=== PATIENT | male | born 1950 | race Caucasian/White ===

== ENCOUNTER 2016-05-23 08:38 | Emergency (ER) | payer OTHER | END 2016-05-23 10:59 | disposition home or self-care (01) | DX: B34.9 Viral infection, unspecified (principal); R55 Syncope and collapse; M54.9 Dorsalgia, unspecified; G89.29 Other chronic pain ==

== ENCOUNTER 2017-02-10 17:39 | Emergency (ER) | payer OTHER ==
[2017-02-10] MEDS ORDERED: PROPARACAINE 0.5% OPHTH DROPS 15 ML ONE (17:45)
[2017-02-10] MEDS ORDERED: ERYTHROMYCIN OPHTH OINT 1 GM TUBE RIGHTEYE STA (17:50)
--- NOTE | 2017-02-10 17:52 | ED Physician Documentation ---
PD HPI OPHTHO - Stated complaint Stated Complaint: FB RT EYE - Chief complaint Chief Complaint: Heent - History obtained from History obtained from: Patient - History of Present Illness Timing - onset: Other (He was working in the house today, he feels like there is something in the right eye. His vision is normal, he does not wear contacts. Tetanus is up-to-date.) Review of Systems Constitutional: denies: Fever, Chills Nose: denies: Rhinorrhea / runny nose, Congestion Throat: denies: Sore throat PD PAST MEDICAL HISTORY - Past Medical History Past Medical History: No Musculoskeletal: Chronic back pain - Past Surgical History Past Surgical History: Yes General: Hiatal hernia repair - Present Medications Home Medications: Ambulatory Orders Medication Instructions Recorded Confirmed Gabapentin [Neurontin] 0 mg PO TID 10/22/12 02/10/17 Morphine Sulfate [Ms Contin] 30 mg PO DAILY 05/23/16 02/10/17 Erythromycin Base [Erythromycin] 1 applic OP 5XD 7 Days oint...g. 02/10/17 - Allergies Allergies/Adverse Reactions: Allergies Allergy/AdvReac Type Severity Reaction Status Date / Time peanut Allergy vomiting Verified 02/10/17 17:45 - Social History Does the pt smoke?: No Smoking Status: Never smoker Does the pt drink ETOH?: Yes Does the pt have substance abuse?: No - Immunizations Immunizations are current?: Yes - POLST Patient has POLST: No PD ED PE NORMAL - Vitals Vital signs reviewed: Yes - General General: Alert and oriented X 3, No acute distress, Well developed/nourished - HEENT HEENT: PERRL, Other (There is a tiny metallic foreign body over the cornea, inferolateral.) - Neck Neck: Supple, no meningeal sign, No bony TTP - Neuro Neuro: Alert and oriented X 3, Normal speech - Psych Psych: Normal mood, Normal affect Results - Vitals Vitals: Vital Signs - 24 hr 02/10/17 17:44 Temperature 36.3 C L Heart Rate 70 Respiratory 18 Rate Blood Pressure 156/83 H O2 Saturation 97 Oxygen O2 Source Room air Procedures - FB removal FB location: Other (Cornea) FB removal preparation: Local anesthesia-specify (Topical proparacaine) Removal method: Other (I could not remove it with a cotton swab, but it easily came out with a tuberculin needle. No residual rust ring.) Departure - Departure Disposition: 01 Home, Self Care Clinical Impression: Corneal foreign body Qualifiers: Encounter type: initial encounter Laterality: right Qualified Code(s): T15.01XA - Foreign body in cornea, right eye, initial encounter Condition: Good Record reviewed to determine appropriate education?: Yes Instructions: ED Foreign Body Cornea Follow-Up: Aroldo Lozada MD [Provider Admit Priv/Credential] - Within 3 Days Prescriptions: Erythromycin Base [Erythromycin] 1 applic OP 5XD 7 Days oint...g. Comments: Your blood pressure was elevated today on check into the emergency department. This does not mean that you have hypertension, it is a common phenomenon to come to the emergency department and have elevated blood pressure. I recommend that she see your primary care physician within the week to have it rechecked when you are feeling better.
[2017-02-10] MEDS ORDERED: ERYTHROMYCIN OPHTH OINT 1 GM TUBE ONE (18:04)
[2017-02-10 18:05] VITALS: BP 142/81
== END 2017-02-10 18:03 | disposition home or self-care (01) ==
LOC: ED 17:39
DX: T15.01XA Foreign body in cornea, right eye, initial encounter (principal); W22.8XXA Striking against or struck by other objects, initial encounter; Y93.89 Activity, other specified; Y92.009 Unspecified place in unspecified non-institutional (private) residence as the place of occurrence of the external cause; R03.0 Elevated blood-pressure reading, without diagnosis of hypertension
CPT/HCPCS: 65220; 99282; 99283; J3490

== ENCOUNTER 2017-02-13 11:01 | Day surgery (SDC) | payer OTHER ==
[2017-02-13] MEDS ORDERED: LACTATED RINGERS 1,000 ML IV ONE (11:11)
[2017-02-13] MEDS ORDERED: MIDAZOLAM 2 MG/2 ML VIAL IVP ONE (12:05)
[2017-02-13] MEDS ORDERED: fentaNYL 100 MCG/2 ML VIAL IVP ONE (12:05)
[2017-02-13] MEDS ORDERED: PROPOFOL 200 MG/20 ML VIAL IVP ONE (13:00)
[2017-02-13] MEDS ORDERED: LIDOCAINE-MPF 2% 5 ML VIAL IM ONE (13:00)
[2017-02-13 13:55] VITALS: BP 118/85
== END 2017-02-13 11:02 | disposition home or self-care (01) ==
LOC: SDS 11:01
PROVIDERS: ATTEND Surgery
PROC: 0DJD8ZZ Inspection of Lower Intestinal Tract, Via Natural or Artificial Opening Endoscopic (ICD-10-PCS; principal; 2017-02-13 12:15)
DX: Z12.11 Encounter for screening for malignant neoplasm of colon (principal); K57.30 Diverticulosis of large intestine without perforation or abscess without bleeding
CPT/HCPCS: G0121; J7120

== ENCOUNTER 2017-03-12 12:25 | Outpatient (CLI) | payer OTHER ==
--- NOTE | 2017-03-12 15:36 | XRAY Report ---
THREE VIEW RIGHT INDEX FINGER: 03/12/2017 CLINICAL INDICATION: Crush injury. FINDINGS: AP, lateral, and oblique views of the right index finger demonstrate a minimally displaced fracture of the distal phalanx, best seen on the lateral view. Osteoarthritis of the distal interpha langeal joint is noted. No foreign body is seen in the soft tissues. There is no evidence of dislocat ion. IMPRESSION: MINIMALLY DISPLACED FRACTURE OF THE DISTAL PHALANX OF THE RIGHT INDEX FINGER. JOB #: [id number] EXT JOB #:[id number]
== END 2017-03-12 12:26 | disposition home or self-care (01) ==
LOC: DI 12:25
PROVIDERS: ATTEND Family Medicine
DX: S62.630A Displaced fracture of distal phalanx of right index finger, initial encounter for closed fracture (principal)
CPT/HCPCS: 73140

== ENCOUNTER 2018-09-24 23:27 | Emergency (ER) | payer OTHER ==
[2018-09-24 23:39] VITALS: BP 133/76
[2018-09-25] MEDS ORDERED: PROPARACAINE 0.5% OPHTH DROPS 15 ML RIGHTEYE STA (00:23)
[2018-09-25] MEDS ORDERED: ERYTHROMYCIN OPHTH OINT 1 GM TUBE RIGHTEYE STA (01:18)
--- NOTE | 2018-09-25 01:22 | ED Physician Documentation ---
PD HPI OPHTHO - Stated complaint Stated Complaint: R EYE PX - Chief complaint Chief Complaint: Heent - History obtained from History obtained from: Patient - History of Present Illness Timing - onset: Today Timing - duration: Hours Timing - details: Abrupt onset Location: Right Quality / character: Aching (irritation) Associated symptoms: Redness, Tearing. No: Swelling, Discharge, Matting, FB sensation, Photophobia, Double vision, Decreased vision, Loss of vision, Headache Contributing factors: FB, Other (while working on his car today, was wearing safety glasses. does not use glasses or contacts.) - Treatment prior to arrival Treatment prior to arrival: none Review of Systems Ten Systems: 10 systems reviewed and negative Constitutional: denies: Fever, Chills Eyes: reports: Irritation. denies: Loss of vision, Decreased vision, Photophobia, Discharge, Reviewed and negative Neurologic: denies: Headache PD PAST MEDICAL HISTORY - Past Medical History Past Medical History: Yes Cardiovascular: None Respiratory: None Neuro: None Endocrine/Autoimmune: None GI: None : None HEENT: None Psych: None Musculoskeletal: Osteoarthritis, Other Derm: None - Past Surgical History Past Surgical History: Yes General: Colonoscopy, Other /CUSTOMER SOLUTIONS TEAMMATE: Other - Present Medications Home Medications: Ambulatory Orders Medication Instructions Recorded Confirmed Gabapentin [Neurontin] 0 mg PO TID 10/22/12 02/10/17 Morphine Sulfate [Ms Contin] 30 mg PO DAILY 05/23/16 02/10/17 Erythromycin Base [Erythromycin] 1 applic OP 5XD 7 Days oint...g. 02/10/17 Erythromycin Base [Erythromycin 1 gm OP Q4HR 7 Days #1 oint...g. 09/25/18 Ophthalmic Ointment] - Allergies Allergies/Adverse Reactions: Allergies Allergy/AdvReac Type Severity Reaction Status Date / Time peanut Allergy vomiting Verified 09/24/18 23:38 - Social History Does the pt smoke?: No Smoking Status: Former smoker Does the pt drink ETOH?: Yes Does the pt have substance abuse?: No - Immunizations Immunizations are current?: Yes - POLST Patient has POLST: No PD ED PE NORMAL - Vitals Vital signs reviewed: Yes - General General: Alert and oriented X 3 - HEENT HEENT: Other (Right eye slit lamp shows R corneal foreign body and rust ring. ) - Neck Neck: Supple, no meningeal sign - Cardiac Cardiac: RRR - Respiratory Respiratory: No respiratory distress - Male Male : Deferred - Rectal Rectal: Deferred (d) - Derm Derm: Normal color, Warm and dry, No rash - Neuro Neuro: Alert and oriented X 3 Eye Opening: Spontaneous Motor: Obeys Commands Verbal: Oriented GCS Score: 15 - Psych Psych: Normal mood, Normal affect Results - Vitals Vitals: Vital Signs - 24 hr 09/24/18 23:37 Temperature 36.5 C Heart Rate 65 Respiratory 17 Rate Blood Pressure 133/76 H O2 Saturation 98 Oxygen O2 Source Room air Procedures - FB removal FB location: Other (eye) FB removal preparation: Local anesthesia-specify (proparacaine drops) Removal method: Other (anna tool, rust ring remains however) FB removal aftercare: Partially removed (rust ring remains. pt to start erythromycin and f/u with ophthalmology) Departure - Departure Disposition: 01 Home, Self Care Clinical Impression: Eye foreign body Qualifiers: Encounter type: initial encounter Laterality: right Qualified Code(s): T15.91XA - Foreign body on external eye, part unspecified, right eye, initial encounter Corneal foreign body Qualifiers: Encounter type: initial encounter Laterality: right Qualified Code(s): T15.01XA - Foreign body in cornea, right eye, initial encounter Condition: Good Record reviewed to determine appropriate education?: Yes Prescriptions: Erythromycin Base [Erythromycin Ophthalmic Ointment] 1 gm OP Q4HR 7 Days #1 oint...g. Comments: You should apply the antibiotic ointment every 4 hours when awake to prevent a corneal infection of your right eye. Follow up with your eye doctor within the next 1-2 days for removal of the rust ring from the foreign body.
== END 2018-09-25 01:25 | disposition home or self-care (01) ==
LOC: ED 23:27
DX: T15.01XA Foreign body in cornea, right eye, initial encounter (principal); X58.XXXA Exposure to other specified factors, initial encounter; Y93.89 Activity, other specified; Z87.891 Personal history of nicotine dependence
CPT/HCPCS: 65222; 99283; J3490

== ENCOUNTER 2018-10-21 12:50 | Outpatient (CLI) | payer OTHER | END 2018-10-21 12:51 | disposition home or self-care (01) | LOC: SC 12:50 | PROVIDERS: ATTEND Internal Medicine Pulmonary Disease | DX: R06.83 Snoring (principal); R06.81 Apnea, not elsewhere classified; F17.210 Nicotine dependence, cigarettes, uncomplicated; E66.3 Overweight; Z68.26 Body mass index [BMI] 26.0-26.9, adult | CPT/HCPCS: 99203; 99212 ==

== ENCOUNTER 2018-11-17 20:31 | Outpatient (CLI) | payer OTHER | END 2018-11-17 20:32 | disposition home or self-care (01) | LOC: SC 20:31 | PROVIDERS: ATTEND Internal Medicine Pulmonary Disease | DX: G47.33 Obstructive sleep apnea (adult) (pediatric) (principal); G47.61 Periodic limb movement disorder | CPT/HCPCS: 95810 ==

== ENCOUNTER 2018-12-10 13:08 | Outpatient (CLI) | payer OTHER ==
--- NOTE | 2018-12-10 13:57 | CONSULTATION NOTE ---
Information from patient questionnaire entered by Xiomara Delgado. I have reviewed and concur with the information entered by Xiomara Delgado. This document represents the service I personally performed and the decisions made by me, Nicol Pearl MD, [facility]. - History of Present Illness HPI: Mr. Piper returned for follow up of the sleep study he had on 11/17/2018. The polysomnography showed that the patient had reduced sleep efficiency due to frequent awakenings after the sleep onset. The sleep architecture was abnormal for sleep fragmentation and lack of slow wave sleep (N3). Respiratory monitoring showed moderate obstructive sleep apnea-hypopnea (AHI = 16.1) associated with frequent arousals, oxyhemoglobin desaturation and mild hypoxia (yissel oxygen saturation of 87%). The respiratory events occurred almost exclusively during supine sleep (supine AHI = 33.3; non-supine = 0.73). Snore was loud in intensity. There was mild periodic leg movement of sleep not contributing to the sleep fragmentation. Cardiac rhythm was normal sinus rhythm without significant arrhythmia. No abnormal behavior (parasomnia) observed during the night. The patient was informed of these findings. I explained to him the pathophysiology behind obstructive sleep apnea. We then spent quite a bit of time discussing different treatment options. For mild obstructive sleep apnea, surgery and oral appliance are alternatives to nasal CPAP therapy but in moderate or severe cases, nasal CPAP is the most effective and reliable treatment. Weight loss in an obese individual is strongly recommended. After some discussion, he opted to go with the nasal CPAP therapy. I explained to him how CPAP machine works and what to expect when using the machine. He is encouraged to use CPAP every night especially in the first 2 to 3 nights in order to get used to it. He should call his CPAP supplier or me to discuss any mechanical problem that may occur. If he snores or feels like he is not getting enough air from the machine, he should notify me and I will increase the pressure. Initial Mosca Sleepiness Scale score: 2 Current Mosca Sleepiness Scale score: 3 - Allergies/Medications Allergies and home medications reviewed: Yes - Review of Systems Review of systems same as previous: Yes - Impression 1. Obstructive Sleep Apnea-Hypopnea Syndrome, moderate, associated with mild hypoxemia and sleep fragmentation. Most likely, this is the cause of the patients symptoms of unrefreshed sleep, and excessive daytime sleepiness. As mentioned above, the patient will be started on an autoCPAP set between 5 and 15 cmH2O. Depending on his response and compliance he may be brought back for an overnight CPAP titration study. - Plan 1. Prescription made for an autoCPAP, heated humidifier, and related supplies. 2. Avoid alcohol consumption near bedtime. 3. The patient is again cautioned about driving until his sleepiness completely resolves on the CPAP therapy. 4. Return in six weeks for follow up. I will assess his response and compliance at that time. This visit is time-based and I spent 15 minutes with the patient and more than 50% of the time was spent counseling the patient.
== END 2018-12-10 13:09 | disposition home or self-care (01) ==
LOC: SC 13:08
PROVIDERS: ATTEND Internal Medicine Pulmonary Disease
DX: G47.33 Obstructive sleep apnea (adult) (pediatric) (principal)
CPT/HCPCS: 99212; 99213

== ENCOUNTER 2020-02-05 04:38 | Emergency (ER) | payer OTHER ==
--- NOTE | 2020-02-05 05:05 | ED Physician Documentation ---
History of Present Illness - Stated complaint Stated Complaint: clavicle/hand pain - Chief complaint Chief Complaint: Trauma Ext - Additonal information Additional information: Patient comes emergency department complaining of right clavicle and left hand. After a fall off his deck steps yesterday. Patient states there are 3 steps going down off of his deck and he is not sure exactly what happened, but he ended up landing on the ground after somehow falling. Patient states he is not sure exactly in what position he landed, but after the word, he noticed pain in his right clavicle, along with some swelling and bruising. Patient states he also feels as though his left third MCP joint is painful and swollen, as well. Patient denies any history of injury previously. No fevers or chills. No other complaints at this time. Review of Systems Ten Systems: 10 systems reviewed and negative Constitutional: reports: Reviewed and negative Eyes: reports: Reviewed and negative Ears: reports: Reviewed and negative Nose: reports: Reviewed and negative Throat: reports: Reviewed and negative Cardiac: reports: Reviewed and negative Respiratory: reports: Reviewed and negative GI: reports: Reviewed and negative : reports: Reviewed and negative Skin: reports: Reviewed and negative Musculoskeletal: reports: Extremity pain, Joint pain Neurologic: reports: Reviewed and negative Psychiatric: reports: Reviewed and negative Endocrine: reports: Reviewed and negative Immunocompromised: reports: Reviewed and negative PD PAST MEDICAL HISTORY - Past Medical History Past Medical History: Yes Cardiovascular: None Respiratory: None Neuro: None Endocrine/Autoimmune: None GI: None : None HEENT: None Psych: None Musculoskeletal: Osteoarthritis, Other Derm: None - Past Surgical History Past Surgical History: Yes General: Colonoscopy, Other /TRUCKING SUPERVISOR: Other - Present Medications Home Medications: Ambulatory Orders Medication Instructions Recorded Confirmed Gabapentin [Neurontin] 0 mg PO TID 10/22/12 02/10/17 Morphine Sulfate [Ms Contin] 30 mg PO DAILY 05/23/16 02/10/17 Erythromycin Base [Erythromycin] 1 applic OP 5XD 7 Days oint...g. 02/10/17 Erythromycin Base [Erythromycin 1 gm OP Q4HR 7 Days #1 oint...g. 09/25/18 Ophthalmic Ointment] Hydrocodone/Acetaminophen 1 - 2 each PO Q6HR PRN #15 tablet 02/05/20 [Hydrocodone-Acetamin 5-325 mg] - Allergies Allergies/Adverse Reactions: Allergies Allergy/AdvReac Type Severity Reaction Status Date / Time peanut Allergy vomiting Verified 02/05/20 04:53 - Social History Does the pt smoke?: Yes Smoking Status: Current every day smoker Does the pt drink ETOH?: Yes Does the pt have substance abuse?: No - Immunizations Immunizations are current?: Yes - POLST Patient has POLST: No PD ED PE NORMAL - Vitals Vital signs reviewed: Yes - General General: Alert and oriented X 3, No acute distress, Well developed/nourished - HEENT HEENT: Atraumatic, PERRL, EOMI, Moist mucous membranes - Neck Neck: Supple, no meningeal sign, Other (Contusion and swelling at the R neck base.) - Cardiac Cardiac: RRR, No murmur - Respiratory Respiratory: Clear bilaterally - Abdomen Abdomen: Normal bowel sounds, Soft, Non tender, Non distended - Derm Derm: Warm and dry - Extremities Extremities: Other (swelling and contusion mid-R clavicle, with moderate deformity. Moderate tenderness 3rd MCP joint L hand. 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 I have d/w pt that it is important that he follows up with orthopedics as soon as possible to see if this fracture will need operative repair. His hand XR was negative. We have discussed pain management and the usual indications for return. Departure - Departure Disposition: 01 Home, Self Care Clinical Impression: Clavicular fracture, closed, shaft Qualifiers: Encounter type: initial encounter Fracture alignment: displaced Laterality: right Qualified Code(s): S42.021A - Displaced fracture of shaft of right clavicle, initial encounter for closed fracture Condition: Stable Instructions: ED Fx Clavicle Follow-Up: Silverio Rojo MD [Provider Admit Priv/Credential] - Joe Lopez MD [Provider Admit Priv/Credential] - Prescriptions: Hydrocodone/Acetaminophen [Hydrocodone-Acetamin 5-325 mg] 1 - 2 each PO Q6HR PRN #15 tablet PRN Reason: Pain Comments: Your x-rays show no abnormalities of your hand, but your right collarbone is broken quite badly. While this does not need emergent surgery, it is important that you follow-up with orthopedics to determine whether they would recommend any kind of operative repair for this. In the meantime, it is very important that you wear the sling and swath to help immobilize her shoulder and keep from stressing the broken area of your collarbone. You may take the shoulder immobilizer off while you shower, but should wear It at all other times, even in bed. Forms: Activity restrictions Discharge Date/Time: 02/05/20 05:50
[2020-02-05 05:52] VITALS: BP 133/78
--- NOTE | 2020-02-05 07:32 | XRAY Report ---
PROCEDURE: Clavicle RT INDICATIONS: fall/pain/swelling TECHNIQUE: 2 views of the clavicle were acquired. COMPARISON: None. FINDINGS: Bones: Fracture of the right clavicle midshaft noted. Distal fracture fragment is displaced inferiorl y. Soft tissues: No suspicious soft tissue calcifications. IMPRESSION: Right clavicle fracture. Reviewed by: Cinthia Hagen MD, PhD on 02/05/2020 7:30 AM PDT Approved by: Cinthia Hagen MD, PhD on 02/05/2020 7:30 AM PDT Station ID: [id number]
--- NOTE | 2020-02-05 07:33 | XRAY Report ---
PROCEDURE: Hand 3 View LT INDICATIONS: fall/pain TECHNIQUE: 3 views of the hand(s) acquired. COMPARISON: None FINDINGS: Bones: Mild cortical irregularity noted at the bases of the third and fourth metacarpals. No suspicio us bony lesions. Soft tissues: No suspicious soft tissue calcifications. IMPRESSION: Mild cortical irregularity spaces of the third fourth metacarpals. Findings could represent acute non displaced fracture versus sequela of remote trauma. Recommend clinical correlation for point tenderne ss. Reviewed by: Cinthia Hagen MD, PhD on 02/05/2020 7:32 AM PDT Approved by: Cinthia Hagen MD, PhD on 02/05/2020 7:32 AM PDT Station ID: [id number]
== END 2020-02-05 05:50 | disposition home or self-care (01) ==
LOC: ED 04:38
DX: S42.011A Anterior displaced fracture of sternal end of right clavicle, initial encounter for closed fracture (principal); W10.8XXA Fall (on) (from) other stairs and steps, initial encounter; Y92.008 Other place in unspecified non-institutional (private) residence as the place of occurrence of the external cause; M79.642 Pain in left hand; F17.200 Nicotine dependence, unspecified, uncomplicated
CPT/HCPCS: 99283; 99284

== ENCOUNTER 2020-02-09 09:04 | Outpatient (CLI) | payer OTHER ==
--- NOTE | 2020-02-09 09:09 | XRAY Report ---
PROCEDURE: Finger(s) LT INDICATIONS: LEFT MIDDLE FINGER PAIN TECHNIQUE: AP hand, 3 views of the third finger(s) acquired. COMPARISON: 3 views of the left hand 02/05/2020 FINDINGS: Bones: No fractures or dislocations are found but on the lateral view there is a 1 mm diameter round ed calcific radiodensity seen at the dorsal margin of the articular surface of the third distal phala nx, possibly a small avulsion fragment. No suspicious bony lesions. Soft tissues: No suspicious soft tissue calcifications. IMPRESSION: A cortical fracture or dislocation is not found but there is a 1 mm calcific radiodensity seen on the lateral view only at the dorsal margin of the articular surface of the base of the third distal phal anx, suspicious for representing an avulsion fragment if focal tenderness is present at that site. Reviewed by: Jourdan Mckeon MD on 02/09/2020 9:07 AM PDT Approved by: Jourdan Mckeon MD on 02/09/2020 9:07 AM PDT Station ID: [id number]
== END 2020-02-09 23:59 | disposition home or self-care (01) ==
LOC: DI.WCP 09:04
PROVIDERS: ATTEND Orthopaedic Surgery
DX: M79.645 Pain in left finger(s) (principal)
CPT/HCPCS: 73140